=== PATIENT | female | born 1955 ===

== ENCOUNTER 2021-06-15 07:45 | Inpatient (IN) | payer OTHER ==
[~2021-06-15] VITALS: Ht 162.6 cm; Wt 100.2 kg
[2021-06-15] MEDS ORDERED: JENTADUETO 2.51 EAC1 PO (09:28)
[2021-06-15] MEDS ORDERED: ACID REDUCER20 M1 PO (09:28)
[2021-06-15] MEDS ORDERED: LEVO-T25 MCG PO (09:28)
[2021-06-15] MEDS ORDERED: MONTELUKAST SOD10 MG PO (09:29)
[2021-06-15] MEDS ORDERED: LIPITOR20 MG PO (09:29)
[2021-06-15] MEDS ORDERED: COZAAR25 MG PO (09:30)
[2021-06-19] MEDS ORDERED: LEVOTHYROXINE50 MCG (14:34)
[2021-06-19] MEDS ORDERED: ATORVASTATIN CA80 MG (14:34)
[2021-06-19] MEDS ORDERED: JENTADUETO 2.51 EAC2 (14:34)
[2021-06-19] MEDS ORDERED: OMEPRAZOLE40 MG (14:35)
[2021-06-19] MEDS ORDERED: SYMBICORT 80/10.2 GM (14:35)
[2021-06-19] MEDS ORDERED: LEVOTHYROXINE75 MCG (14:35)
[2021-06-19] MEDS ORDERED: CLONAZEPAM0.5 MG (14:35)
[2021-06-21] MEDS ORDERED: DUI500 PO (18:46)
[2021-06-21] MEDS ORDERED: ELIQUIS2.5 MG PO (18:46)
[2021-06-21] MEDS ORDERED: PERCOCET 5-3251 EACH PO (18:46)
== END 2021-06-22 09:23 | DRG 468 ==
LOC: O/R 06-19 06:28 → SURH 06-19 06:28
PROVIDERS: ADMIT Orthopaedic Surgery; ATTEND Orthopaedic Surgery
PROC: 0SWD0JC Revision of Synthetic Substitute in Left Knee Joint, Patellar Surface, Open Approach (ICD-10-PCS; principal; 2021-06-19 14:45)
DX: T84.033A Mechanical loosening of internal left knee prosthetic joint, initial encounter (principal); Y83.8 Other surgical procedures as the cause of abnormal reaction of the patient, or of later complication, without mention of misadventure at the time of the procedure